=== PATIENT | female | born 1970 | race Caucasian/White ===

== ENCOUNTER 2018-01-29 16:51 | Emergency (ER) | payer OTHER ==
[2018-01-29 16:56] VITALS: BP 122/71; PULSE 87; TEMP 98; BMI 20.9
--- NOTE | 2018-01-29 17:55 | PDOC ---
History of Present Illness - General Chief Complaint: Injury Stated Complaint: LACERATION Time Seen by Provider: 01/29/18 17:32 - History of Present Illness Initial Comments: 47-year-old female with pre-existing medical conditions a lumbar radiculopathy on an anti-inflammatory and gabapentin presents for evaluation of right thumb pain after slamming her car door onto her thumb. She describes her pain as achy exacerbated with motion and manipulation of the area relieved with rest and free of radiation. No prior problems with the right thumb. 01/29/18 17:49 Past History - Past Medical History Allergies/Adverse Reactions: Allergies Allergy/AdvReac Type Severity Reaction Status Date / Time Penicillins Allergy Verified 01/29/18 16:56 Home Medications: Ambulatory Orders Clindamycin [Cleocin -] 300 mg PO TID #21 capsule 01/29/18 Gabapentin 1,000 gm [facility] 01/29/18 COPD: No - Suicide/Smoking/Psychosocial Hx Smoking History: Current every day smoker Number of Cigarettes Smoked Daily: 20 Information on smoking cessation initiated: No Review of Systems - Review of Systems Musculoskeletal: Yes: See HPI All Other Systems: Reviewed and Negative *Physical Exam - Vital Signs Last Vital Signs Temp Pulse Resp BP Pulse Ox 98 F 87 18 122/71 99 01/29/18 16:52 01/29/18 16:52 01/29/18 16:52 01/29/18 16:52 01/29/18 16:52 - Physical Exam Comments: The distal aspect from about the midportion of the right thumbnail has been avulsed. The nail bed is exposed and has a subcentimeter laceration at the midportion. There are no gross sensorimotor deficits. Bleeding is controlled. 01/29/18 17:50 Procedures - Laceration/Wound Repair Right Finger Wound Length: to 2.5 cm Wound's Depth, Shape: superficial Irrigated w/ Saline: Yes Betadine Prep: Yes Anesthesia: 1% Lidocaine Amount of Anesthetic (ccs): 5 Wound Debrided: minimal Wound Repaired With: Dermabond Sterile Dressing Applied: Yes Splint Applied: No Progress: Tolerated well 01/29/18 18:45 ED Treatment Course - RADIOLOGY Radiology Studies Ordered: Category Date Time Status FINGER(S) RIGHT [RAD] Stat Radiology 01/29/18 17:44 Ordered Medical Decision Making - Medical Decision Making This is a right thumb nail avulsion with a laceration in the nail bed. Possibly an open fracture I'll get an x-ray at this point. She has an open fracture give her a dose of IV antibiotics and send her home on oral. 01/29/18 17:51 01/29/18 18:43 There is no fracture on x-ray wound was thoroughly irrigated and explored there is an L-shaped ulnar pointing laceration extending from the distal to proximal aspect of the nailbed pointing towards the ulnar aspect of the thumb. The edges were approximated with Dermabond. The nailbed is still exposed. This was all done aseptically. *DC/Admit/Observation/Transfer Diagnosis at time of Disposition: Nail avulsion, finger, Laceration of nail bed of finger - Discharge Dispostion Disposition: HOME Condition at time of disposition: Stable Decision to Admit order: No - Referrals Referrals: ON STAFF,NOT [Primary Care Provider] - Selwyn Branham MD [Staff Physician] - - Patient Instructions Printed Discharge Instructions: DI for Laceration Repair With Dermabond Additional Instructions: Please keep the area clean and dry and covered for 48 hours. After 48 hours you may remove the dressing and leave the area open to air do not get the area wet do not apply any topical ointments or petroleum-based antibacterial ointments. Follow-up with hand surgery in 1-2 days for further evaluation and treatment options. I've also prescribed antibiotic which you should finish. Your tetnus was updated today as well. - Post Discharge Activity
[2018-01-29] MEDS ORDERED: DIPHTH,PERTUSS(ACELL),TET 0.5 ML DISP.SYRIN IM ONE (18:34)
== END 2018-01-29 19:07 | disposition home or self-care (01) ==
LOC: JERFT 16:51
PROC: 0HQFXZZ Repair Right Hand Skin, External Approach (ICD-10-PCS; principal; 2018-01-29)
PROC: 3E0234Z Introduction of Serum, Toxoid and Vaccine into Muscle, Percutaneous Approach (ICD-10-PCS; 2018-01-29)
DX: S61.111A Laceration without foreign body of right thumb with damage to nail, initial encounter (principal); V48.0XXA Car driver injured in noncollision transport accident in nontraffic accident, initial encounter; Y92.488 Other paved roadways as the place of occurrence of the external cause; Y93.89 Activity, other specified; Y99.8 Other external cause status
CPT/HCPCS: 73140-TC-RT-FY; 90715; 99281-25